=== PATIENT | male | born 1995 | race Caucasian/White ===

== ENCOUNTER 2016-07-20 22:56 | Emergency (ER) | payer OTHER ==
[~2016-07-20] VITALS: Ht 177.8 cm; Wt 72.6 kg
[2016-07-20 22:58] VITALS: TEMP 36.8; Ht 177.8 cm; Wt 72.6 kg
[2016-07-20 23:57] LABS: BASO % 0.2 %; BASO ABS # 0.02 K/uL (0-0.2); COMPLETE YES; EOS % 1.4 %; HEMATOCRIT 40.2 % (42-52); IG% 0.1 %; LYMPH % 17.5 %; MEAN CELL VOLUME 82.4 fL (80-100); MEAN CORPUSCULAR HEMOGLOBIN 28.7 pg (25-34); MEAN CORPUSCULAR HGB CONC 34.8 g/dl (32-36); MEAN PLATELET VOLUME 10.8 fL (7.4-10.4); MONO % 12.3 %; NEUT % 68.5 %; PLATELET COUNT 311 K/uL (130-400); RED BLOOD COUNT 4.88 M/uL (4.7-6.1); WHITE BLOOD COUNT 8.56 K/uL (4.8-10.8)
[2016-07-21] MEDS ORDERED: SODIUM CHLORIDE 0.9% 1000ML 1,000 ML IV STA
--- NOTE | 2016-07-21 00:03 | EMERGENCY ROOM VISIT NOTE ---
History Report prepared by Elton: Lou Horan Under the Supervision of: Dr. Lala Stewart D.O. First contact with patient: 23:28 Chief Complaint: SYNCOPE (NEAR SYNCOPE) Stated Complaint: PASSING OUT,POSSIBLE SEIZURE AFTER Nursing Triage Summary: Patient describes two episodes this evening of ? sycnope with associate dincont of urine. patinet denies any c/c at present. he does report that this happened a few weeks ago. Negative nausea/vomiting, negative drug use. One alcoholic beverage this evening. History of Present Illness The patient is a 20 year old male who presents to the Emergency Room with complaints of two sudden syncopal episodes that occurred prior to arrival. The patient states that this evening he was at a bar with friends when he started feeling lightheaded for 10-30 seconds then had a syncopal episode. The patient' s friend states that she went to help the patient up and he was immediately looking for his glasses. The patient states that he was up for a few seconds when he started feeling lightheaded again and had a second syncopal episode. The patient's friend states that the patient had seizure like activity at this time, noting that he was shaking and his eyes rolled back in his head. She states that again the patient got up right away and was not confused or post ictal. The patient's friend states that she took the patient outside gave him water and then took him home. The patient states that he lost control of his bladder during the second episode. The patient states that he felt completely normal today, denying any weakness, fever, chills, lightheadedness, or nausea throughout the day today. He states that he ate normally today and only had one alcoholic beverage today. The patient denies any drug or supplement use. He denies any new medications. The patient states that one week ago when he got out of the shower he became nauseous and had a syncopal episode. He states that he is unsure of how long he was on the ground for. The patient states that other than his episodes this evening and one week ago he has had no previous syncopal episodes or seizure like activity. The patient denies ever losing control of his bowel or bladder in the past. He states that for the past week he has had a sore throat. The patient states that for the last week he has intermittently felt dehydrated, noting an intermittent headache. He denies any vomiting, abdominal pain, constipation, diarrhea, or urinary symptoms. The patient denies any family history of seizures. Source of History: patient, friend Onset: prior to arrival Position: other (global) Symptom Intensity: 2 Quality: other (syncopal episodes) Timing: other (sudden) Associated Symptoms: + headache, + nausea, No abdominal pain, No diarrhea, No urinary symptoms, No vomiting Review of Systems See HPI for pertinent positives & negatives. A total of 10 systems reviewed and were otherwise negative. Past Medical & Surgical Medical Problems: (1) No pertinent past medical history Surgical Problems: (1) No pertinent past surgical history Family History Cancer Social History Smoking Status: Never Smoker Alcohol Use: occasionally Drug Use: none Marital Status: single Housing Status: lives alone Occupation Status: [employer] student Current/Historical Medications No Active Prescriptions or Reported Meds Allergies Coded Allergies: No Known Allergies (Unverified , 07/20/16) Physical Exam Vital Signs Date Time Temp Pulse Resp B/P Pulse Ox O2 Delivery O2 Flow Rate FiO2 07/21/16 01:47 78 18 119/71 97 07/21/16 01:00 70 15 112/64 98 07/21/16 00:29 74 22 97 07/21/16 00:24 69 19 113/65 97 07/20/16 23:50 76 20 108/55 97 Room Air 75 112/72 98 114/76 07/20/16 23:18 85 07/20/16 22:58 36.8 96 18 129/83 96 Room Air Physical Exam HEENT: Head - normocephalic and atraumatic Pupils are equal, round, and reactive to light. Extraocular eye muscles are intact, and sclera are anicteric. Nose - moist nasal mucosa without discharge. Mouth - moist buccal mucosa. Oropharynx is nonerythematous and there is no tonsillar exudate or edema noted. Neck: Supple; no JVD, nuchal rigidity, cervical lymphadenopathy. Heart: Regular rate and rhythm. There is a normal S1 and S2 with no murmurs, clicks, or gallops appreciated. Lungs: Clear to auscultation bilaterally with no wheezes, rales, or rhonchi. Abdomen: Soft, completely nontender, nondistended, with good bowel sounds. There are no palpable pulsatile masses or hepatosplenomegaly. There is no guarding, rigidity, or rebound noted. Extremities: No evidence of cyanosis, clubbing, or edema. There are easily palpable peripheral pulses. Skin: warm and dry with good turgor and no rashes. Medical Decision & Procedures ER Provider Diagnostic Interpretation: CT Head: No ICH, mass effect or edema. No evidence of acute cortical stroke. Visualized sinuses and mastoid air cells are clear. Radiologist: Tiburcio Cage MD Study ready at 0009 and initial results transmitted at 0020. Laboratory Results 07/20/16 23:35 Red Blood Count 4.88, Mean Corpuscular Volume 82.4, Mean Corpuscular Hemoglobin 28.7, Mean Corpuscular Hemoglobin Concent 34.8, Mean Platelet Volume 10.8, Neutrophils (%) (Auto) 68.5, Lymphocytes (%) (Auto) 17.5, Monocytes (%) (Auto) 12.3, Eosinophils (%) (Auto) 1.4, Basophils (%) (Auto) 0.2, Neutrophils # (Auto ) 5.86, Lymphocytes # (Auto) 1.50, Monocytes # (Auto) 1.05, Eosinophils # (Auto ) 0.12, Basophils # (Auto) 0.02 07/20/16 23:35 Test 07/20/16 23:35 07/20/16 23:54 White Blood Count 8.56 K/uL (4.8-10.8) Red Blood Count 4.88 M/uL (4.7-6.1) Hemoglobin 14.0 g/dL (14.0-18.0) Hematocrit 40.2 % (42-52) Mean Corpuscular Volume 82.4 fL (80-100) Mean Corpuscular Hemoglobin 28.7 pg (25-34) Mean Corpuscular Hemoglobin Concent 34.8 g/dl (32-36) Platelet Count 311 K/uL (130-400) Mean Platelet Volume 10.8 fL (7.4-10.4) Neutrophils (%) (Auto) 68.5 % Lymphocytes (%) (Auto) 17.5 % Monocytes (%) (Auto) 12.3 % Eosinophils (%) (Auto) 1.4 % Basophils (%) (Auto) 0.2 % Neutrophils # (Auto) 5.86 K/uL (1.4-6.5) Lymphocytes # (Auto) 1.50 K/uL (1.2-3.4) Monocytes # (Auto) 1.05 K/uL (0.11-0.59) Eosinophils # (Auto) 0.12 K/uL (0-0.5) Basophils # (Auto) 0.02 K/uL (0-0.2) RDW Standard Deviation 38.8 fL (36.4-46.3) RDW Coefficient of Variation 12.8 % (11.5-14.5) Immature Granulocyte % (Auto) 0.1 % Immature Granulocyte # (Auto) 0.01 K/uL (0.00-0.02) Anion Gap 10.0 mmol/L (3-11) Est Creatinine Clear Calc Drug Dose 119.0 ml/min Estimated GFR () 123.3 Estimated GFR (Non- 106.4 BUN/Creatinine Ratio 17.3 (10-20) Calcium Level 8.6 mg/dl (8.5-10.1) Magnesium Level 2.0 mg/dl (1.8-2.4) Total Bilirubin 0.2 mg/dl (0.2-1) Direct Bilirubin mg/dl (0-0.2) Aspartate Amino Transf (AST/SGOT) 29 U/L (15-37) Alanine Aminotransferase (ALT/SGPT) 62 U/L (12-78) Alkaline Phosphatase 65 U/L (45-117) Total Protein 7.7 gm/dl (6.4-8.2) Albumin 3.7 gm/dl (3.4-5.0) Thyroid Stimulating Hormone (TSH) 3.940 uIu/ml (0.300-4.500) Chemistry Specimen Hemolysis Monoscreen NEG (NEG) Urine Color YELLOW Urine Appearance CLEAR (CLEAR) Urine pH 5.5 (4.5-7.5) Urine Specific [place] 1.022 (1.000-1.030) Urine Protein NEG (NEG) Urine Glucose (UA) NEG (NEG) Urine Ketones TRACE (NEG) Urine Occult Blood NEG (NEG) Urine Nitrite NEG (NEG) Urine Bilirubin NEG (NEG) Urine Urobilinogen NEG (NEG) Urine Leukocyte Esterase NEG (NEG) Urine Opiates Screen NEG (NEG) Urine Methadone, Qualitative NEG (NEG) Urine Barbiturates NEG (NEG) Urine Phencyclidine (PCP) Level NEG (NEG) Ur Amphetamine/Methamphetamine NEG (NEG) MDMA (Ecstasy) Screen NEG (NEG) Urine Benzodiazepines Screen NEG (NEG) Urine Cocaine Metabolite NEG (NEG) Urine Marijuana (THC) NEG (NEG) Laboratory results per my review. Medications Administered Medications (Trade) Dose Ordered Sig/René Route Start Time Stop Time Status Last Admin Dose Admin Sodium Chloride (Nss 1000ml) 1,000 ml @ 999 mls/hr Q1H1M STAT IV 07/21/16 00:00 07/21/16 01:00 DC 07/21/16 00:26 999 MLS/HR Procedure The patient was treated with Sodium Chloride 1000 ml @ 999 mls/hr IV. ECG Indication: syncope Rate (beats per minute): 74 Rhythm: normal sinus Findings: no acute ischemic change, no ectopy ED Course 2335: Past medical records reviewed. The patient was evaluated in room B2. A complete history and physical exam was performed. A twelve-lead EKG was obtained. An IV lock was initiated and labs were drawn as above. The patient had orthostatic vital signs as described above. He went for CT scan of the brain. 0000: Ordered Sodium Chloride 1000 ml @ 999 mls/hr IV. 0125: I reevaluated the patient and he is resting comfortably. He was able to drink clear liquids. I discussed all the exam findings with him and I discussed the treatment plan. He verbalized complete understanding and agreement. He is ready to go home. Medical Decision The patient is a 20 year old male who presents to the ED with syncope. Differential diagnosis includes cardiac dysrhythmia, seizure, orthostasis, dehydration, hypoglycemia, hyperglycemia, alcohol intoxication. Lab interpretation: urinalysis positive for trace ketones, urine tox screen negative, TSH normal, normal renal function, normal glucose, normal LFTs, normal White blood cell count, stable H&H, monospot negative. This is a 20-year-old male patient who had 2 episodes of passing out this evening while at a bar. He also describes an episode of syncope last week after getting out of the shower. The patient believes that he may be dehydrated as he is constantly thirsty. There is no evidence of hyperglycemia. There was some ketonuria. The patient was treated with IV crystalloid therapy. I have asked the patient not to drive until he has close follow-up with [facility] health services. He may require an EEG. Certainly if he has additional episodes of passing out or shaking, he should return here to the emergency department. Impression Primary Impression: Syncope Additional Impression: Dehydration Scribe Attestation The scribe's documentation has been prepared under my direction and personally reviewed by me in its entirety. I confirm that the note above accurately reflects all work, treatment, procedures, and medical decision making performed by me. Departure Information Dispostion Home / Self-Care Prescriptions No Active Prescriptions or Reported Meds Referrals No Doctor, Assigned (PCP) Forms HOME CARE DOCUMENTATION FORM, IMPORTANT VISIT INFORMATION Patient Instructions ED Dehydration, My [facility], Syncope Additional Instructions Rest. Take plenty of clear liquids Take 5 small meals a day. If you have the feeling that you may pass out, sit down immediately If you have any further episodes of passing out, you should return to the ER. No driving until follow up with student health services Follow up with them on Saturday Problem Qualifiers
[2016-07-21 00:11] LABS: URINE APPEARANCE CLEAR (CLEAR); URINE BILIRUBIN NEG (NEG); URINE COLOR YELLOW; URINE NITRITE NEG (NEG); URINE PH 5.5 (4.5-7.5); URINE SPECIFIC GRAVITY 1.022 (1.000-1.030); UROBILINOGEN NEG (NEG)
[2016-07-21 00:20] LABS: ALKALINE PHOSPHATASE 65 U/L (45-117); ALT/SGPT 62 U/L (12-78); AST/SGOT 29 U/L (15-37); BLOOD UREA NITROGEN 17 mg/dl (7-18); BUN/CREATININE RATIO 17.3 (10-20); CALCIUM 8.6 mg/dl (8.5-10.1); CARBON DIOXIDE 27 mmol/L (21-32); CHLORIDE 103 mmol/L (98-107); GLUCOSE 95 mg/dl (70-99); POTASSIUM 3.8 mmol/L (3.5-5.1); SODIUM 140 mmol/L (136-145)
[2016-07-21 00:21] LABS: MANUAL MICROSCOPIC REQUIRED? NO; REVIEW REQ? NO
[2016-07-21 00:26] LABS: BENZODIAZEPINE, URINE NEG (NEG); COCAINE,URINE NEG (NEG); PHENCYCLIDINE, URINE NEG (NEG)
[2016-07-21 01:47] VITALS: BP 119/71; PULSE 78; O2SAT 97
--- NOTE | 2016-07-21 07:17 | DIAGNOSTIC IMAGING REPORT ---
CT SCAN OF THE BRAIN WITHOUT IV CONTRAST CLINICAL HISTORY: Syncope. COMPARISON STUDY: No priors. TECHNIQUE: Unenhanced axial CT scan of the brain is performed from the vertex to the skull base. Automated dose control exposure was utilized. CT DOSE: 537.48 mGy.cm FINDINGS: Brain parenchyma: The brain parenchyma is normal in appearance. There is no hemorrhage, mass effect, or evidence of acute territorial ischemia by CT criteria. Woods-white matter is preserved. No extra-axial fluid collection is seen. Ventricles, sulci, cisterns: Normal in configuration. Intracranial vasculature: The visualized intracranial vasculature at the skull base is normal in appearance. Calvarium: Unremarkable. Sinuses and mastoids: The visualized paranasal sinuses are clear. The mastoid air cells are well pneumatized. Orbits: The bony orbits are grossly intact. IMPRESSION: No acute intracranial abnormality. Electronically signed by: Sergio Clancy M.D. 07/21/2016 7:15 AM Dictated Date/Time: 07/21/2016 7:14 AM
== END 2016-07-21 01:47 | disposition home or self-care (01) ==
LOC: C.EDB 22:57
DX: R55 Syncope and collapse (principal); E86.0 Dehydration; R82.4 Acetonuria

== ENCOUNTER → 2016-07-27 | Outpatient (CLI) | payer OTHER ==
--- NOTE | 2016-07-29 15:53 | EEG Procedure Note ---
EEG Procedure Note Date of Service July 27, 2016. Start / End Times Start Time: 9:04am End Time: 9:24am Referring Physician Aimee Keller History 20 year old male with syncope. EEG to evaluate for possible seizure etiology. No Home meds reported. Home Medication List No Active Prescriptions or Reported Meds Description This is a 21 electrode EEG with a single channel dedicated to limited EKG. The electrodes were placed in accordance with the International 10-20 system. At the start of the recording the patient was in an awake state. The background was well organized and composed of symmetric mixed alpha and beta frequencies. There was a well formed symmetric moderate amplitude posterior dominant rhythm of 10-11Hz that was reactive to eye opening and closure. Hyperventilation produced no abnormalities. Photic stimulation at various frequencies produced no abnormalities. Drowsiness was indicated by slowing of the background rhythm, vertex waves, and loss of muscle artifact. There was no stage 2 sleep transients. Interpretation This is a normal awake and drowsy routine EEG There was no electrographic seizures or epileptiform discharges. Clinical Correlation A normal EEG does not rule out epilepsy if there is a strong clinical suspicion.
== END | disposition home or self-care (01) ==
LOC: C.NEUR 08:44
PROVIDERS: ATTEND Family Medicine
DX: R55 Syncope and collapse (principal)